=== PATIENT | female | born 1960 ===

== ENCOUNTER 2018-11-13 08:06 | Outpatient (CLI) | payer OTHER ==
[~2018-11-13 08:06] MED LIST: LIMBREL 500 MG500 MG PO; NORFLEX100MG PO; ULTRACET PO
== END 2018-11-13 14:38 | disposition home or self-care (01) ==
LOC: RAD 08:06
DX: R13.13 Dysphagia, pharyngeal phase (principal)

== ENCOUNTER 2019-01-25 10:36 | Outpatient (CLI) | payer OTHER | END 2019-01-25 10:38 | disposition home or self-care (01) | LOC: SONOGRAMA 10:36 → MAMO-SONO 11:15 | DX: M25.511 Pain in right shoulder (principal); M25.512 Pain in left shoulder ==